=== PATIENT | female | born 1975 | race Caucasian/White ===

== ENCOUNTER 2020-08-17 04:24 | Emergency (ER) | payer OTHER ==
[~2020-08-17] VITALS: Ht 165.1 cm; Wt 122.5 kg
[2020-08-17] MEDS ORDERED: NEURONTIN100 MG PO (04:53)
[2020-08-17] MEDS ORDERED: HYDROCODONE-AP1 EA11 PO (04:56)
[2020-08-17] MEDS ORDERED: KEFLEX500 M1 PO (05:33)
[2020-08-17 05:50] VITALS: BP 148/88
== END 2020-08-17 05:50 | disposition home or self-care (01) ==
LOC: M.ERS 04:24
DX: S91.115A Laceration without foreign body of left lesser toe(s) without damage to nail, initial encounter (principal); Z98.890 Other specified postprocedural states; Z88.8 Allergy status to other drugs, medicaments and biological substances; W22.8XXA Striking against or struck by other objects, initial encounter; Y93.89 Activity, other specified; Y92.89 Other specified places as the place of occurrence of the external cause; Y99.8 Other external cause status

== ENCOUNTER 2020-12-13 20:42 | Emergency (ER) | payer OTHER ==
[~2020-12-13] VITALS: Ht 165.1 cm; Wt 127.0 kg
[~2020-12-13 20:42] MED LIST: HYDROCODONE-AP1 EA11 PO; KEFLEX500 M1 PO; NEURONTIN100 MG PO
[2020-12-13] MEDS ORDERED: LEXAPRO 10 MG T10 M2 PO (20:51)
[2020-12-13] MEDS ORDERED: ZOFRAN ODT4 MG PO (21:36)
[2020-12-13] MEDS ORDERED: AMOXICILLIN 50500 M1 PO (21:36)
[2020-12-13 22:16] VITALS: BP 166/94
== END 2020-12-13 22:18 | disposition home or self-care (01) ==
LOC: M.ERS 20:42
DX: R04.0 Epistaxis (principal); Z98.890 Other specified postprocedural states; Z88.8 Allergy status to other drugs, medicaments and biological substances

== ENCOUNTER 2021-03-01 17:37 | Emergency (ER) | payer OTHER ==
[~2021-03-01] VITALS: Ht 165.1 cm; Wt 127.0 kg
[~2021-03-01 17:37] MED LIST changes: +AMOXICILLIN 50500 M1 PO; +LEXAPRO 10 MG T10 M2 PO; +ZOFRAN ODT4 MG PO
[2021-03-01] MEDS ORDERED: MEDROLDOSEPACK PO (18:27)
[2021-03-01] MEDS ORDERED: IBUPROFEN 800800 M1 PO (18:27)
[2021-03-01] MEDS ORDERED: FLEXERIL PO (18:27)
[2021-03-01 18:43] VITALS: BP 172/70
== END 2021-03-01 18:44 | disposition home or self-care (01) ==
LOC: M.ERS 17:37
DX: M54.42 Lumbago with sciatica, left side (principal); Z98.890 Other specified postprocedural states; Z88.8 Allergy status to other drugs, medicaments and biological substances; Z79.899 Other long term (current) drug therapy

== ENCOUNTER 2021-05-15 19:40 | Emergency (ER) | payer OTHER ==
[~2021-05-15] VITALS: Ht 165.1 cm; Wt 129.3 kg
[~2021-05-15 19:40] MED LIST changes: +FLEXERIL PO; +IBUPROFEN 800800 M1 PO; +MEDROLDOSEPACK PO
[2021-05-15] MEDS ORDERED: CEPHALEXIN500 MG PO (20:49)
[2021-05-15 20:56] VITALS: BP 184/87
== END 2021-05-15 20:56 | disposition home or self-care (01) ==
LOC: M.ERS 19:40
DX: S70.321A Blister (nonthermal), right thigh, initial encounter (principal); Z88.8 Allergy status to other drugs, medicaments and biological substances; X58.XXXA Exposure to other specified factors, initial encounter; Y93.89 Activity, other specified; Y92.89 Other specified places as the place of occurrence of the external cause; Y99.8 Other external cause status